=== PATIENT | female | born 1965 | race Caucasian/White ===

== ENCOUNTER → 2017-03-16 | Outpatient (CLI) | payer BC ==
[~2017-03-16] MED LIST: OMNIPAQUE 350 MG/ML, 100ML BOTTLE ONE
== END | disposition home or self-care (01) ==
LOC: CFH 14:15
PROVIDERS: ATTEND Internal Medicine
DX: I27.82 Chronic pulmonary embolism (principal); R06.00 Dyspnea, unspecified; D68.59 Other primary thrombophilia
CPT/HCPCS: 71275; 93970; Q9967

== ENCOUNTER → 2018-02-24 | Outpatient (CLI) | payer OTHER | END | disposition home or self-care (01) | LOC: RAD 12:29 | PROVIDERS: ATTEND Internal Medicine | DX: I27.82 Chronic pulmonary embolism (principal); D68.59 Other primary thrombophilia; I82.522 Chronic embolism and thrombosis of left iliac vein | CPT/HCPCS: 71275; 93970; Q9967 ==